=== PATIENT | male | born 1960 | race Caucasian/White ===

== ENCOUNTER → 2023-10-21 08:41 | Outpatient (REF) | payer OTHER, SELFPAY | LOC: HWRAD 08:41 | PROVIDERS: ATTENDING PHYSICIAN Surgery; FAMILY PHYSICIAN Family Medicine | DX: K63.9 Disease of intestine, unspecified (principal) | CPT/HCPCS: 74177; Q9967 ==

== ENCOUNTER → 2024-03-02 08:57 | Outpatient (REF) | payer OTHER, SELFPAY | LOC: WDC 08:57 | PROVIDERS: ATTENDING PHYSICIAN Family Medicine | DX: N63.21 Unspecified lump in the left breast, upper outer quadrant (principal); R22.31 Localized swelling, mass and lump, right upper limb | CPT/HCPCS: 76642; 77062; 77066 ==

== ENCOUNTER → 2024-10-09 07:56 | Outpatient (REF) | payer OTHER, SELFPAY | LOC: RAD 07:56 | PROVIDERS: ATTENDING PHYSICIAN Internal Medicine Medical Oncology; FAMILY PHYSICIAN Family Medicine | DX: C82.58 Diffuse follicle center lymphoma, lymph nodes of multiple sites (principal) | CPT/HCPCS: 71260; 74177; Q9967 ==